=== PATIENT | female | born 1950 | race Native Hawaiian/Other Pacific Islander ===

== ENCOUNTER 2017-06-30 13:31 | Outpatient (CLI) | payer OTHER | END 2017-06-30 19:32 | disposition home or self-care (01) | LOC: LABW 13:31 | PROVIDERS: Nurse Practitioner Adult Health | DX: E78.2 Mixed hyperlipidemia (principal); Z79.899 Other long term (current) drug therapy; Z51.81 Encounter for therapeutic drug level monitoring | CPT/HCPCS: 36415; 80061; 80076 ==

== ENCOUNTER 2018-08-06 07:03 | Outpatient (CLI) | payer OTHER | END 2018-08-06 19:19 | disposition home or self-care (01) | LOC: LABW 07:03 | PROVIDERS: Specialist | DX: Z79.01 Long term (current) use of anticoagulants (principal); E78.2 Mixed hyperlipidemia | CPT/HCPCS: 36415; 80061; 80076 ==

== ENCOUNTER 2019-07-22 10:25 | Outpatient (CLI) | payer OTHER | END 2019-07-22 19:53 | disposition home or self-care (01) | LOC: LABW 10:25 | PROVIDERS: Nurse Practitioner Adult Health | DX: I25.10 Atherosclerotic heart disease of native coronary artery without angina pectoris (principal); E78.2 Mixed hyperlipidemia; Z79.899 Other long term (current) drug therapy | CPT/HCPCS: 36415; 80061; 80076 ==